=== PATIENT | female | born 1965 | race Caucasian/White ===

== ENCOUNTER 2021-10-15 19:49 | Emergency (ER) | payer SELFPAY ==
--- NOTE | 2021-10-15 20:10 | NUR ---
PATIENT WAS CALLED TO BE TRIAGED BUT WAS NOT PRESENT IN THE WAITING ROOM.
--- NOTE | 2021-10-15 20:20 | NUR ---
Patient was called to be traiged but was not present in the waiting room or outside of ER.
--- NOTE | 2021-10-15 20:30 | NUR ---
Patient left without being traiged or seen by ERMD.
== END 2021-10-15 20:30 | disposition left against medical advice (07) ==
LOC: ER 19:52
DX: Z53.21 Procedure and treatment not carried out due to patient leaving prior to being seen by health care provider (principal)